=== PATIENT | female | born 1985 | race Caucasian/White ===

== ENCOUNTER 2020-05-11 18:49 | Outpatient (CLI) | payer OTHER ==
--- NOTE | 2020-05-11 23:04 | Ultrasound Report ---
PROCEDURE: Pelvic w/Transvaginal INDICATIONS: COMPLICATION OF IUD TECHNIQUE: Real-time scanning was performed of the pelvic organs, with image documentation. Additional endovagi nal scanning was necessary due to incomplete visualization of the adnexal and endometrial structures by transabdominal scanning. COMPARISON: None. FINDINGS: Transabdominal scanning: Limited scanning through the kidneys shows no hydronephrosis. No pathologi c free abdominal or pelvic fluid. Endovaginal scanning: Uterus: Uterus is anteverted and normal in size at 8.0 x 3.4 x 4.1 cm. The endometrium measures 5 m m in combined thickness. An IUD is in expected location in the fundal endometrium. No evidence of si gnificant displacement. The crossbars are not well seen. Ovaries: The right ovary measures 2.2 x 1.8 x 2.3 cm for a volume of 6.5 cc. The left ovary measures 2.6 x 1.9 x 2.2 cm for a volume of 5.7 cc. The left ovary contains multiple subcentimeter follicles displaced peripherally. The right ovarian follicular echotexture is normal. IMPRESSION: 1. IUD present in expected position within the fundal endometrium of the crossbars on the IUD are not well seen. No secondary signs to suggest malposition. 2. Multiple subcentimeter left ovarian follicles. This is nonspecific, however this morphology can be seen in the setting of polycystic ovarian syndrome with the appropriate clinical and biochemical mar kers. Reviewed by: Jenny Lara MD on 05/11/2020 11:02 PM PST Approved by: Jenny Lara MD on 05/11/2020 11:02 PM PST Station ID: [id number]
== END 2020-05-11 18:50 | disposition home or self-care (01) ==
LOC: DI 18:49
PROVIDERS: ATTEND Obstetrics & Gynecology
DX: Z97.5 Presence of (intrauterine) contraceptive device (principal); R93.89 Abnormal findings on diagnostic imaging of other specified body structures
CPT/HCPCS: 76830; 76856

== ENCOUNTER 2020-06-27 12:19 | Outpatient (CLI) | payer OTHER | END 2020-06-27 12:20 | disposition home or self-care (01) | LOC: COV 12:19 | PROVIDERS: ATTEND Family Medicine | DX: Z01.812 Encounter for preprocedural laboratory examination (principal); Z20.828 Contact with and (suspected) exposure to other viral communicable diseases; T83.39XA Other mechanical complication of intrauterine contraceptive device, initial encounter ==

== ENCOUNTER 2020-07-04 06:35 | Day surgery (SDC) | payer OTHER ==
[2020-07-04] MEDS ORDERED: LACTATED RINGERS 1,000 ML IV ONE ×2 (06:39→08:29)
[2020-07-04] MEDS ORDERED: GABAPENTIN 400 MG CAPSULE ONE (06:46)
[2020-07-04] MEDS ORDERED: ACETAMINOPHEN 1,000 MG/100 ML 100 ML IV ONE (06:46)
[2020-07-04] MEDS ORDERED: CELECOXIB 100 MG CAPSULE PO ONE (06:46)
[2020-07-04 07:02] LABS: HCG UR QUAL NEGATIVE
[2020-07-04] MEDS ORDERED: LIDOCAINE-MPF 2% 5 ML VIAL ONE (07:11)
[2020-07-04] MEDS ORDERED: MIDAZOLAM 2 MG/2 ML VIAL ONE (07:11)
[2020-07-04] MEDS ORDERED: PROPOFOL 200 MG/20 ML VIAL IVP ONE (07:11)
[2020-07-04] MEDS ORDERED: fentaNYL 100 MCG/2 ML VIAL ONE (07:11)
[2020-07-04] MEDS ORDERED: ONDANSETRON 4 MG/2 ML VIAL ONE (07:12)
[2020-07-04] MEDS ORDERED: KETOROLAC 30 MG/ML VIAL ONE (07:12)
[2020-07-04] MEDS ORDERED: DEXAMETHASONE 4 MG/ML VIAL ONE (07:12)
[2020-07-04] MEDS ORDERED: BUPIVACAINE 0.5%-EPI 1:200000 PF 30 ML VIAL ONE (07:13)
[2020-07-04] MEDS ORDERED: LEVONORGESTREL 20 MCG/24H IUD IY ONE (07:13)
[2020-07-04] MEDS ORDERED: ATROPINE ABBOJECT 1 MG/10 ML SYRINGE IVP PRN (07:18)
[2020-07-04] MEDS ORDERED: HYDROmorphone 0.5 MG/0.5 ML SYRINGE IVP PRN (07:18)
[2020-07-04] MEDS ORDERED: fentaNYL 100 MCG/2 ML VIAL IVP PRN (07:18)
[2020-07-04] MEDS ORDERED: MORPHINE 2 MG/ML CARPUJECT IVP PRN (07:18)
[2020-07-04] MEDS ORDERED: METOCLOPRAMIDE 10 MG/2 ML VIAL IVP PRN (07:18)
[2020-07-04] MEDS ORDERED: ePHEDrine 50 MG/ML VIAL IVP PRN (07:18)
[2020-07-04] MEDS ORDERED: ONDANSETRON 4 MG/2 ML VIAL IVP PRN (07:18)
[2020-07-04] MEDS ORDERED: NALOXONE 0.4 MG/ML VIAL IVP PRN (07:18)
--- NOTE | 2020-07-04 07:20 | ANESTHESIA ---
Pre-Anesthesia VS, & Labs - Diagnosis embedded IUD - Procedure hysteroscopy, IUD removal Vital Signs: Temp Pulse Resp BP Pulse Ox 36.9 C 93 18 125/78 98 07/04/20 07:01 07/04/20 07:01 07/04/20 07:01 07/04/20 07:01 07/04/20 07:01 Height: 5 ft 3 in Weight (kg): 82.9 kg Body Mass Index: 32.3 BMI Classification: Obese - NPO >8 hours - Is Patient ?: No - Lab Results Lab results reviewed: Yes Home Medications and Allergies Home Medications: Ambulatory Orders No Known Home Medications 06/26/20 Active Medications Scopolamine HBr (Scopolamine Patch) 1 patch TOP Q3D LALO No Known Home Medications 06/26/20 Allergies/Adverse Reactions: Allergies Allergy/AdvReac Type Severity Reaction Status Date / Time melon Allergy Hives Verified 06/26/20 12:24 walnut Allergy Unknown Verified 06/26/20 12:24 Anes History & Medical History - Anesthetic History Anesthesia Complications: reports: No previous complications Family history of Anesthesia Complications: Denies Family history of Malignant Hyperthermia: Denies - Medical History Cardiovascular: reports: None Pulmonary: reports: None Gastrointestinal: reports: None Urinary: reports: None Musculoskeletal: reports: None Endocrine/Autoimmune: reports: None Skin: reports: None Exam General: Alert, Oriented x3, Cooperative, No acute distress Dental: WNL Mouth Openin Fingerbreadth Neck Mobility: Normal Mallampati classification: I Respiratory: Lungs clear, Normal breath sounds, No respiratory distress, No accessory muscle use Cardiovascular: Regular rate, Normal S1, Normal S2, No murmurs Plan Anesthesia Type: General Consent for Procedure(s) Verified and Reviewed: Yes Code Status: Attempt Resuscitation ASA classification: 1-Healthy patient Is this case an emergency?: No
[2020-07-04] MEDS ORDERED: LACTATED RINGERS 1,000 ML IV SCH (08:00)
[2020-07-04] MEDS ORDERED: SCOPOLAMINE PATCH TOP SCH (08:00)
[2020-07-04] MEDS ORDERED: BUPIVACAINE 0.5%-EPI 1:200000 PF 30 ML VIAL SUBQ ONE (08:18)
--- NOTE | 2020-07-04 08:46 | OPERATIVE REPORT ---
Operative Report - General Procedure Date: 07/04/20 Planned Procedure: Hysteroscopy with retrieval of retained IUD Possible laparoscopic retrieval Placement of Mirena IUD Pre-Op Diagnosis: Retained and Mirena IUD Procedure Performed: Hysteroscopic retrieval of Mirena IUD Insertion of Mirena IUD (LOT # [id number]) Post Op Diagnosis: Same and insertion of Mirena IUD - Procedure Note Primary Surgeon: Brittanie Solomon MD Anesthesia Provider: Cain Ibarra CRNA Anesthesia Technique: MAC Pathology: none Estimated Blood Loss (mL): 5 (minimal) Urine Output (mL): 200 Indications: Diya is a 35 yo with Mirena IUD in place that has failed removal in clinic x2 here for hysteroscopic Mirena removal and replacement. Patient had IUD placed about 6 weeks 5 years ago. No issues with Mirena and has been amenorrheic since 2013. Has had somelight spotting in the last couple of months. Desires replacement of Mirena. Wants to maintain amenorrhea but is not yet ready for surgical sterilization. Patient has had 2 attempts in clinic at removal with two different providers. IUD strings are missing. Formal US shows IUD in the endometrial canal at the fundus but arms were not well seen. She is scheduled to undergo hysteroscopic removal of the IUD with possible laparoscopic removal if arms are on the serosal aspect of the uterus. If the uterus is of normal cavity shape and is not damaged, she would like to have a Mirena placed while under anesthesia. No changes in health hx since time of prior exam. This will be her third Mirena, and she is very satisfied with them. She denies other concerns. LMP was in 2013. Findings: IUD within the uterine cavity, removed under direct visualization and found to be intact upon removal. Normal uterine cavity with bilateral tubal ostia visualized. Complications: None - Other Other Information/Narrative: Risks benefits and alternatives to the procedure were reviewed. Consent was again confirmed. Patient was taken to the operating room where she underwent general anesthesia. She was positioned in dorsolithotomy position with legs resting in yellowfin stirrups. She was prepped and draped in the usual sterile fashion. Preoperative antibiotics were not indicated. Preoperative checklist was performed. Exam under anesthesia was performed. Speculum was placed in the vagina and the cervix was visualized. Single-tooth tenaculum was placed at the anterior cervical lip. Paracervical block was administered using a total of 20 cc of 0.5% bupivicaine with epinephrine was injected at the 4:00 and 8:00 positions lateral to the portio of the cervix. The cervical os was serially dilated with Hegar dilators to accommodate the caliber of the diagnostic hysteroscope. Uterus sounded to 9 cm. The hysteroscope was inserted and findings were noted as above. The hysteroscopic grasper was inserted through the operative port. The IUD was grasped under direct visualization and removed form the uterine cavity under direct visualization. Uterine cavity was smooth at close of the procedure. Hysteroscope was removed. Mirena IUD was inserted according to package directions. IUD strings were trimmed to 3 cm. All instruments were removed from the uterus. Tenaculum was removed. Tenaculum sites were noted to be hemostatic. All instruments were removed from the vagina. Procedure was well- tolerated without complication. Fluid deficit: 160 cc NS
[2020-07-04 09:16] VITALS: BP 128/75
--- NOTE | 2020-07-04 13:36 | ANESTHESIA POST OP EVALUATION ---
Anesthesia Post Eval - Post Anesthesia Eval Vitals: Last Vital Signs Temp 36.4 C L 07/04/20 09:16 Pulse 73 07/04/20 09:16 Resp 13 07/04/20 09:16 BP 128/75 07/04/20 09:16 Pulse Ox 99 07/04/20 09:16 CV Function Including HR & BP: positive: Stable Pain Control: positive: Satisfactory Nausea & Vomiting: positive: Negative Mental Status: positive: Baseline Respiratory Status: Airway Patent Hydration Status: Satisfactory Anesthesia Complications: positive: None
== END 2020-07-04 06:36 | disposition home or self-care (01) ==
LOC: SDS 06:35
PROVIDERS: ATTEND Obstetrics & Gynecology
DX: T83.39XA Other mechanical complication of intrauterine contraceptive device, initial encounter (principal); Y84.8 Other medical procedures as the cause of abnormal reaction of the patient, or of later complication, without mention of misadventure at the time of the procedure; E66.9 Obesity, unspecified; Z68.32 Body mass index [BMI] 32.0-32.9, adult
CPT/HCPCS: 58300; 58562; 81025; A9270; J0131; J1170; J3490; J7120

== ENCOUNTER 2024-01-11 15:28 | Outpatient (CLI) | payer BC ==
--- NOTE | 2024-01-12 09:11 | Mammography Report ---
BILATERAL FIRST EVER DIGITAL SCREENING MAMMOGRAM 3D/2D: 01/11/2024 CLINICAL: Baseline exam. Routine screening. Family history of breast cancer. No prior exams were available for comparison. Both breasts are heterogeneously dense, which may obscure small masses (category c / 51-75% glandular tissue). No significant masses, calcifications, or other findings are seen in either breast. IMPRESSION: NEGATIVE There is no mammographic evidence of malignancy. A 1 year screening mammogram is recommended. Based on the Tyrer Cuzick model (a risk assessment model) the patient's lifetime risk is 15.7% and he r 10 year risk is 2.1%. According to the ACR, ACS, and NCCN guidelines, an annual breast MRI exam olga lidia ng with mammogram is recommended if the patient's lifetime risk is 20% or greater. This exam was interpreted at Station ID: [id number]. NOTE: For mammograms, a report in lay terms will be sent to the patient. Approximately 15% of breast malignancies will not be visualized mammographically. In the management of a palpable breast mass, a negative mammogram must not discourage biopsy of a clinically suspicious lesion. Electronically Signed By: Nikolas yoder/darryl:01/12/2024 08:17:59 letter sent: No_Letter ACR BI-RADS Category 1: Negative 3341F PARENCHYMAL PATTERN: (D) - The breast(s) demonstrate(s) heterogeneously dense fibroglandular naomy hinton. BI-RADS CATEGORY: (1) - 1 RECOMMENDATION: (ANNUAL) - Recommend routine annual screening mammography. [id number] 1 year screening LATERALITY: (B)
== END 2024-01-11 15:29 | disposition home or self-care (01) ==
LOC: DI.S 15:28
DX: Z12.31 Encounter for screening mammogram for malignant neoplasm of breast (principal); R92.333 Mammographic heterogeneous density, bilateral breasts; Z80.3 Family history of malignant neoplasm of breast